=== PATIENT | male | born 1955 | race Caucasian/White ===

== ENCOUNTER → 2024-03-17 15:26 | Outpatient (REF) | payer BC, SELFPAY | LOC: MRI 3T 15:26 | PROVIDERS: ATTENDING PHYSICIAN Specialist; FAMILY PHYSICIAN Family Medicine | DX: R97.20 Elevated prostate specific antigen [PSA] (principal) | CPT/HCPCS: 72197; A9575 ==

== ENCOUNTER 2024-04-15 05:57 | Emergency (ER) | payer OTHER, SELFPAY ==
[2024-04-15 06:07] VITALS: BP 154/85
[2024-04-15 06:40] VITALS: BMI 26.2
[2024-04-15 06:51] LABS: % Basophils 1.3 % (0-2); % Immature Granulocytes 0.3 % (0-0.5); % Monocytes 9.8 % (1.7-9.3); % Neutrophils 48.6 % (42.2-75.2); Absolute Basophils 0.1 10^3/uL (0-0.2); Absolute Eosinophils 0.2 10^3/uL (0-0.7); Absolute Lymphocytes 1.3 10^3/uL (1.2-3.4); Absolute Monocytes 0.4 10^3/uL (0.1-0.6); Absolute Neutrophils 1.8 10^3/uL (1.4-6.5); Hematocrit 38.1 % (39.0-52.0); Mean Corp Hgb Conc. 34.1 g/dL (33.0-37.0); Mean Corpuscular Hgb 30.8 pg (27.0-31.0); Mean Corpuscular Volume 90.3 fL (80.0-94.0); Mean Platelet Volume 11.1 fL (7.4-10.4); Nucleated Red Blood Cells % 0 % (-); Platelet Count 143 10^3/uL (130-400); Red Blood Cell Count 4.22 10^6/uL (4.70-6.10); Red Cell Dist. Width 12.8 % (11.5-14.5); White Blood Cell Count 3.8 10^3/uL (4.8-10.8)
[2024-04-15 07:02] VITALS: BP 132/79
[2024-04-15 07:04] LABS: ALT (SGPT) 20 U/L (0-50); AST (SGOT) 28 U/L (17-59); Albumin 4.3 g/dl (3.5-5.0); Alkaline Phosphatase 40 U/L (38-126); Blood Urea Nitrogen 18 mg/dl (9-20); Calcium 8.9 mg/dl (8.4-10.2); Carbon Dioxide 27 mmol/L (22-30); Chloride 104 mmol/L (98-107); Estimated Creatinine Clearance 96 ml/min; Glucose 101 mg/dl (70-99); Potassium 4.1 mmol/L (3.5-5.1); Sodium 138 mmol/L (135-145); Total Bilirubin 0.9 mg/dl (0.2-1.3); Total Protein 6.8 g/dl (6.3-8.2); eGFR > 60.00
[2024-04-15 07:14] LABS: NT-proBNP 109 pg/ml; Troponin I < 0.012 ng/ml
[2024-04-15 07:25] VITALS: BP 135/90
--- NOTE | 2024-04-15 07:48 | ED.GENMED ---
History of Present Illness
General
Chief Complaint: Extremity Pain (non-traumatic)
Source: patient
Time Seen by Provider: 04/15/24 07:09
History of Present Illness
History of Present Illness:
68-year-old male with past medical history of hyperlipidemia and BPH (hypertension listed however patient is not on any antihypertensive regimen) presenting to the ER for evaluation of left upper arm/axillary pain that has been ongoing for the last
few weeks, unchanged today however notes pain seems to be slightly more prominent which is why he decided to come to the ER for further evaluation. Patient was concern for possible cardiac etiology and wanted to have further testing done. Patient
denies any other associated symptoms other than the pain including lightheadedness, cough, shortness of breath, exertional dyspnea, orthopnea, pleurisy, abdominal pain, fevers or infectious symptoms or any other concerns. He reports that about 2
years ago he had an extensive cardiac workup including stress test and calcium score with CT scan done of the chest with testing all coming back unremarkable. Patient also notes that about 7 or 8 years ago he had arthroscopic surgery on his left
shoulder and was told that in a few years he might need more surgery to repair what could not be fully completed but states he has not had any further follow-up since. Patient states that he plays pickle ball regularly as well as swims once a week
but has not had any increasing chest pain or worsening symptoms during this time. Patient also notes that he is still able to range of motion the left shoulder without difficulty.
Past History
Past History
ED Past Medical History: Hypercholesterolemia and Other (BPH)
ED Past Surgical History: Orthopedic
Social History
Tobacco: Non-smoker
Alcohol: None
Drug: None
Personal:
Living: with family
Employment: Employed
Review of Systems
Review of Systems
All Other Systems: ROS reviewed and negative except as documented in HPI and ROS
Phy Exam
Physical Exam
Physical Exam:
GENERAL: Alert , in no apparent distress
HEAD: NCAT
EYE: conjunctiva clear
NECK: Supple
ENT: o/p clr, mmm.
CARDIAC: Bradycardic rate and rhythm. Patient persistently around 44 to 40 bpm on telemetry and states that this is his usual
LUNGS: Clear breath sounds bilaterally, no acute respiratory distress, no wheezes/rales/rhonchi
NEUROLOGICAL: Alert and oriented
SKIN: Warm and dry, skin intact.
MUSCULOSKELETAL: well perfused. Normal range of motion, no deformities
PSYCH: Normal and appropriate interaction.
Scores
Heart Failure Risk
Heart Failure Risk Score: Not Applicable
Heart Score for Chest Pain Patients
STEMI patient?: No
History: Slightly or Non-Suspicious
ECG: Normal
Age: >/= 65 years
Risk Factors: 1 or 2 Risk Factors
Troponin: </= Normal Limit
Heart Score for Chest Pain Patients: 3
Heart Score Risk: 2.5% MACE over next 6 weeks
Withdrawal Assessment of Alcohol
Withdrawal Assessment Completed?: Not applicable
Course
Orders/Labs/Results
Orders:
Orders
04/15/24 05:58
Electrocardiogram (*1) Urgent
Reason for Study: Other
Other Reason for Exam: Respiratory Distress
Cardiac Monitoring- Treatment ONCE
EKG- Treatment ONCE
IV Insert/Care/Rem.- Treatment PRN
CR Chest - 2 Views Urgent
Comment:
Reason For Exam: respiratory distress
O2 Therapy [RESP] Urgent
Titrate/Wean O2 to maintain O2 sat greater than (%): 93
Special Instructions: TO MAINTAIN CONTINUOUS O2 SATS >/= 93%
Pulse Ox/cont/shift [RESP] Urgent
Quantity: 1
Special Instructions: continuous pulse ox
04/15/24 06:38
Complete Blood Count/With Diff Urgent
Comprehensive Metabolic Panel Urgent
NT-proBNP Urgent
Troponin I Urgent
04/15/24 07:12
Shoulder, Left 2 View CR [CR Shoulder - Left Min 2 View*] Urgent
Comment:
Reason For Exam: pain
Abnormal Lab Results
04/15/24
06:38
WBC 3.8 L 10^3/uL
(4.8-10.8)
RBC 4.22 L 10^6/uL
(4.70-6.10)
Hct 38.1 L %
(39.0-52.0)
MPV 11.1 H fL
(7.4-10.4)
Monocytes % 9.8 H %
(1.7-9.3)
Glucose 101 H mg/dl
(70-99)
04/15/24 06:38
04/15/24 06:38
Vital Signs
Initial and Last Documented VS:
Initial Vital Signs
Temp Pulse Resp BP Pulse Ox
97.8 F 47 20 154/85 100
04/15/24 06:07 04/15/24 06:07 04/15/24 06:07 04/15/24 06:07 04/15/24 06:07
Last Documented Vital Signs
Temp Pulse Resp BP Pulse Ox
97.8 F 45 18 135/90 100
04/15/24 06:07 04/15/24 07:45 04/15/24 07:45 04/15/24 07:25 04/15/24 07:45
MDM/Problems Addressed
Differential Diagnosis Includes:
Musculoskeletal etiology such as arthritis, rotator cuff pathology, tendinitis. Less concern for ACS given patient without symptoms during exercise, less concern for PE or other vascular pathology given duration of symptoms and lack of other
associated symptoms, no symptoms to suggest infectious etiology
MDM/Problems Addressed:
68-year-old male presenting the ER for evaluation of a few weeks of left shoulder/axillary discomfort. Patient concern for possible cardiac etiology although has no angina or anginal equivalent symptoms. Exam otherwise reassuring and history
reassuring given that patient is quite active and asymptomatic during these times of activity. Labs were initiated on arrival. Patient has a negative troponin and a nonischemic EKG. He does have a slight leukopenia of undetermined significance
and we discussed this and that he would likely need follow-up on this with primary care provider. Patient had a chest x-ray and shoulder x-ray completed with a shoulder x-ray showing some degenerative changes which could be contributing to
patient's symptoms presently. Recommended a short-term course of anti-inflammatories to see if this would help with discomfort as patient has yet to try any medications. He will follow-up with primary care provider and aware of return precautions
to the ER.
*Radiology
Radiology exam reviewed: preliminary read by ED provider (Degenerative changes of left shoulder)
*Pulse Oximetry
Patient hypoxic: no
*EKG
Interpreted by ED Provider?: Yes
Heart Rate: 48
Rate: bradycardiac
Rhythm: sinus
Ischemia: no ischemia
*Inspector Salvage Interpretation
Rate: bradycardiac
Rhythm: sinus
*Critical Care Note
Total Time (30-74mins, 75-104mins- exclusive of procedures): Not Applicable
Patient Management
Social determinants of health affecting care: Strong social support
ED Attending Note
-
Portions of this chart may have been created with voice recognition software.� Occasional wrong word or��sound alike� substitutions may have occurred due to the inherent limitations of voice recognition software.
Discharge Plan
Departure
Patient Disposition: Home (Routine Discharge)
Date of Disposition: 04/15/24
Time of Disposition: 07:48
Patient with high blood pressure during this ER visit?: Yes
Discharge Problem:
Pain in left upper arm, Leukopenia
Instructions: Shoulder pain - ED discharge instructions
Prescriptions:
No Action
cephalexin 500 MG capsule
500 mg PO QID Qty: 40 0RF
Interventions
Interventions:
*Risk Screen - Suicide Last Done: 04/15/24 06:00
*General Assessment Last Done: 04/15/24 06:00
*Neglect/Abuse Screening Last Done: 04/15/24 06:00
ED- Fall Risk Assessment Last Done: 04/15/24 06:00
*ED COVID-19 Vaccine History Last Done: 04/15/24 06:00
*Nursing Disposition Last Done: 04/15/24 08:07
ED-Musculoskeletal Assessment Last Done: 04/15/24 06:40
ED-Peripheral Vascular Assessment Last Done: 04/15/24 06:40
ED-Skin Assessment Last Done: 04/15/24 06:40
Discharge Date and Time
Discharge Date/Time: 04/15/24 08:07
Print Language: [email or web address]
== END 2024-04-15 08:07 | disposition home or self-care (01) ==
LOC: EMR 05:57
PROVIDERS: Student in an Organized Health Care Education/Training Program; EMERGENCY PHYSICIAN Emergency Medicine; FAMILY PHYSICIAN Family Medicine
DX: M79.622 Pain in left upper arm (principal); D72.819 Decreased white blood cell count, unspecified; I10 Essential (primary) hypertension; E78.00 Pure hypercholesterolemia, unspecified; N40.0 Benign prostatic hyperplasia without lower urinary tract symptoms
CPT/HCPCS: 99285; 71046; 73030; 80053; 83880; 84484; 85025; 93005

== ENCOUNTER 2024-05-03 06:23 | Day surgery (SDC) | payer OTHER, SELFPAY | END 2024-05-03 09:27 | disposition home or self-care (01) | LOC: GI 06:23 | PROVIDERS: ATTENDING PHYSICIAN Student in an Organized Health Care Education/Training Program | DX: Z12.11 Encounter for screening for malignant neoplasm of colon (principal); D12.0 Benign neoplasm of cecum; D12.3 Benign neoplasm of transverse colon; K63.5 Polyp of colon; Z86.0100 Personal history of colon polyps, unspecified; K64.0 First degree hemorrhoids | CPT/HCPCS: 45385; 45380; 88305 ==

== ENCOUNTER → 2025-03-03 09:45 | Outpatient (REF) | payer OTHER, SELFPAY ==
[2025-03-03 10:40] LABS: Hematocrit 41.7 % (39.0-52.0); Hemoglobin 14.1 g/dL (13.0-18.0); Mean Corp Hgb Conc. 33.8 g/dL (33.0-37.0); Mean Corpuscular Volume 90.5 fL (80.0-94.0); Nucleated Red Blood Cells % 0 % (-); Platelet Count 165 10^3/uL (130-400); Red Cell Dist. Width 12.6 % (11.5-14.5)
[2025-03-03 11:27] LABS: Blood Urea Nitrogen 20 mg/dl (9-20); Calcium 9.1 mg/dl (8.4-10.2); Carbon Dioxide 29 mmol/L (22-30); Chloride 103 mmol/L (98-107); Glucose 86 mg/dl (70-99); Potassium 4.8 mmol/L (3.5-5.1); Sodium 137 mmol/L (135-145); eGFR > 60.00
== END ==
LOC: REG 09:45
PROVIDERS: ATTENDING PHYSICIAN Student in an Organized Health Care Education/Training Program; FAMILY PHYSICIAN Physician Assistant Medical
DX: Z01.818 Encounter for other preprocedural examination (principal)
CPT/HCPCS: 36415; 80048; 85025; 93005

== ENCOUNTER 2025-04-17 05:47 | Day surgery (SDC) | payer OTHER, SELFPAY ==
[2025-04-17 06:10] VITALS: BP 144/84; BMI 26.5
[2025-04-17] MEDS: TYLENOL 1000 MG PO (06:26)
[2025-04-17] MEDS: CELEBREX 200 MG PO (06:26)
[2025-04-17] MEDS: NORMOSOL-R/PLASMALYTE-A 1000 IV (06:27)
[2025-04-17 08:17] VITALS: BP 116/68
[2025-04-17 08:30] VITALS: BP 160/64
[2025-04-17 08:45] VITALS: BP 136/79
[2025-04-17 09:00] VITALS: BP 140/73
== END 2025-04-17 09:25 | disposition home or self-care (01) ==
LOC: SDS 05:47
PROVIDERS: ATTENDING PHYSICIAN Student in an Organized Health Care Education/Training Program
DX: M19.071 Primary osteoarthritis, right ankle and foot (principal); M25.871 Other specified joint disorders, right ankle and foot
CPT/HCPCS: 28755; 28041